=== PATIENT | female | born 1950 | race Caucasian/White ===

== ENCOUNTER 2020-09-07 19:20 | Emergency (ER) | payer MEDICARE, OTHER ==
[~2020-09-07 19:20] MED LIST: EPIPEN 2-P0.3 MG/0.3 INJ
[2020-09-07] MEDS ORDERED: HYDROCODON-ACE1 EAC2 PO (21:44)
== END 2020-09-07 22:00 | disposition home or self-care (01) ==
LOC: ER1 19:20
DX: S42.255A Nondisplaced fracture of greater tuberosity of left humerus, initial encounter for closed fracture (principal); F17.210 Nicotine dependence, cigarettes, uncomplicated; W19.XXXA Unspecified fall, initial encounter; Y92.009 Unspecified place in unspecified non-institutional (private) residence as the place of occurrence of the external cause
CPT/HCPCS: 73030; 96372; 99283; J1885

== ENCOUNTER 2021-04-17 09:23 | Emergency (ER) | payer MEDICARE, OTHER ==
[~2021-04-17 09:23] MED LIST changes: +HYDROCODON-ACE1 EAC2 PO
[2021-04-17 10:00] LABS: HEMOGLOBIN 13.7 gm/dl (12.3-15.3); RED BLOOD COUNT 4.55 M/UL (4.00-5.10); WHITE BLOOD COUNT 7.1 K/UL (4.5-11.0)
[2021-04-17 10:25] LABS: BUN/CREATININE RATIO 24 (0-10)
== END 2021-04-17 13:14 | disposition home or self-care (01) ==
LOC: ER1 09:23
PROVIDERS: Nurse Practitioner
DX: R51.9 Headache, unspecified (principal); I10 Essential (primary) hypertension; Z88.0 Allergy status to penicillin; Z87.891 Personal history of nicotine dependence
CPT/HCPCS: 70450; 80053; 82550; 82553; 83874; 84484; 85025; 96374; 99284; J1885; J2405